=== PATIENT | female | born 1990 | race Caucasian/White ===

== ENCOUNTER 2017-02-28 21:26 | Emergency (ER) | payer BC, OTHER ==
--- OUTSIDE RECORDS SUMMARY | 2017-02-28 22:31 | XMS REPORT | Continuity of Care Document ---
:1990 Author Organization [employer] [place] [address] Care Team Providers Name Role Phone Rigo Esqueda Primary Care Provider [phone] Source Comments This disclosure is being made pursuant to the [employer] program and contain all information available regarding this patient.[employer] Active Allergies and Adverse Reactions Allergen Noted Date Severity Reactions Comments Ketorolac Tromethamine 02/21/2017 High Anaphylaxis Promethazine 02/21/2017 Low Altered Mental Status Current Medications Be aware that medications may not be up to date as of this document. Alwaysverify current medications with the patient. Prescription Sig. Disp. Refills Start Date End Date Status clopidogrel (PLAVIX) 75 MG 12/21/2016 Active tablet aspirin 325 MG tablet Take 325 mg by Active mouth daily. Active Problems Not on file Most Recent Encounters Date Type Specialty Providers Description 02/28/2017 Orders Only Endocrinology María Peter, Subclinical RN hyperthyroidism (Primary Dx) 02/23/2017 Initial consult Endocrinology Haley Mcpherson, Abnormal thyroid MD ultrasound (Primary Dx) 02/23/2017 Orders Only Endocrinology Mony Ray, Collin's disease RADIOLOGICAL TECHNOLOGIST (Primary Dx) 02/22/2017 Abstract Endocrinology Mony Ray, RADIOLOGICAL TECHNOLOGIST 02/21/2017 Initial consult Rheumatology Tylor Llanes, KRISHNA positive ( Primary MD Dx); Collin's disease Social History Tobacco Use Types Packs/Day Years Used Date Current Every Day Smoker Cigarettes 0.5 Smokeless Tobacco: Never Used Tobacco Cessation:Ready to Quit: No; Counseling Given: Yes Comments: Alcohol Use Drinks/Week oz/Week Comments No 0 Standard drinks or equivalent 0.0 Last Filed Vital Signs Vital Sign Reading Time Taken Blood Pressure 114/67 02/23/2017 8:26 AM CDT Pulse 77 02/23/2017 8:26 AM CDT Temperature - - Respiratory Rate - - Height 1.626 m (5' 4") 02/23/2017 8:26 AM CDT Weight 56.926 kg (125 lb 8 oz) 02/23/2017 8:26 AM CDT Body Mass Index 21.53 02/23/2017 8:26 AM CDT Oxygen Saturation - - Plan of Care Date Type Specialty Providers Description 06/01/2017 Appointment Endocrinology Haley Mcpherson MD [facility] [place] [address] [phone] (Fax) Health Maintenance Due Date Last Done Comments HPV Vaccine (9-26YO) (1 of 3 - Female 3 Dose Series) 2002 Pneumococcal Medium Risk 19-64 yo (1 of 1 - PPSV23) 2010 Tetanus/Pertussis (1 - Tdap) 2010 Pap Smear 2012 Influenza Immunization (#1) 2016 Results from Last 3 Months US HEAD AND NECK SOFT TISSUE (02/23/2017 9:06 AM) Narrative US HEAD AND NECK SOFT TISSUE Transverse and longitudinal images of the thyroid gland were obtained. Right lobe 3.7 x 1.1 x 1.5 cm, diffusely heterogeneous with no discrete nodules. Several enlarged lymph nodes are seen in the right neck at level III and level VA The isthmus measures 0.1 cm Left lobe 3.1 x 1 x 1.4 cm, slightly heterogeneous with no discrete nodules Several enlarged lymph nodes are seen in the left neck at level IV and level III Impression: The thyroid gland is not enlarged, it is slightly heterogeneous with no discrete nodules.Bilateral enlarged lymph nodes are seen.Follow-up is recommended. READING PHYSICIAN: Haley Mcpherson Procedure Note Endy, External Ris In - Tamra February 23, 2017 1:19 PM CDT US HEAD AND NECK SOFT TISSUE Transverse and longitudinal images of the thyroid gland were obtained. Right lobe 3.7 x 1.1 x 1.5 cm, diffusely heterogeneous with no discrete nodules. Several enlarged lymph nodes are seen in the right neck at level III and level VA The isthmus measures 0.1 cm Left lobe 3.1 x 1 x 1.4 cm, slightly heterogeneous with no discrete nodules Several enlarged lymph nodes are seen in the left neck at level IV and level III Impression: The thyroid gland is not enlarged, it is slightly heterogeneous with no discrete nodules. Bilateral enlarged lymph nodes are seen. Follow-up is recommended. READING PHYSICIAN: Haley Mcpherson TSH (02/21/2017 3:17 PM) Component Value Range TSH 0.081(L) 0.350-4.940 uIU/mL Narrative Testing performed at [facility], [address] [place] [address].[employer] Feeder Leo Silver MD Homocysteine (cardio), FPIA (02/21/2017 3:17 PM) Component Value Range Homocysteine, Cardiovascular 14.6(H)Comment: <10.4 umol/L Homocysteine is increased by functional deficiency of folate or vitamin B12.Testing for methylmalonic acid differentiates between these deficiencies.Other causes of increased homocysteine include renal failure, folate antagonists such as methotrexate and phenytoin, and exposure to nitrous oxide. Specimen BLOOD Narrative Testing performed at: [facility], [address] [place] [address], [id number], [employer] Feeder: RIGO ULLOA DO,MPH Ribosomal P protein antibody (02/21/2017 3:17 PM) Component Value Range Ribosome P Ab IgG <1.0 NEG <1.0 NEG AI Narrative Testing performed at: [facility], [address] [place] [address], [phone], [employer] Feeder: RIGO ULLOA DO,MPH Thyroid peroxidase antibody (02/21/2017 3:17 PM) Component Value Range Thyroid Peroxidase Ab 176.24(H) 0.00-5.60 IU/ml Narrative Testing performed at [facility], [address] [place] [address].[employer] Feeder Leo Silver MD Thyroglobulin (02/21/2017 3:17 PM) Component Value Range Thyroglobulin Ab 204.36(H) 0.00-4.10 IU/ml Narrative Testing performed at [facility], [address] [place] [address].[employer]aten [employer] Feeder Leo Silver MD Complement, total (02/21/2017 3:17 PM) Component Value Range Total (CH50) Complement 42 31-60 U/mL Narrative Testing performed at: [facility], [address] [place], [phone], [employer] Feeder: RIGO ULLOA DO,MPH C4 complement (02/21/2017 3:17 PM) Component Value Range Complement C4, Body Fluid 23 16-47 mg/dL Narrative Testing performed at: [facility], [address] [place], [id number], [employer] Feeder: RIGO ULLOA DO,MPH C3 complement (02/21/2017 3:17 PM) Component Value Range Complement C3, Body Fluid 93 90-180 mg/dL Narrative Testing performed at: [facility], [address] [place], [phone], [employer] Feeder: RIGO ULLOA DO,MPH ANCA Panel (Vasculitis) (02/21/2017 3:17 PM) Component Value Range Myeloperoxidase Ab <1.0Comment: AI ValueInterpretation <1.0 No Antibody Detected > or=1.0 Antibody Detected Autoantibodies to myeloperoxidase (MPO) are commonly associated with the following small-vessel vasculitides: microscopic polyangitis, polyarteritis nodosa, Churg-Lia syndrome, necrotizing and crescentic glomerulonephritis and occasionally Wegeners granulomatosis. The perinuclear IFA pattern, (p-ANCA) is based largely on autoantibody to myeloperoxidase which serves as the primary antigen. These autoantibodies are present in active disease state. Proteinase 3 Antibody <1.0Comment: AI ValueInterpretation <1.0 No Antibody Detected > or=1.0 Antibody Detected Autoantibodies to proteinase-3 (NY-3) are accepted as characteristic for granulomatosis with polyangiitis (Sara's), and are detectable in 95% of the histologically proven cases. The cytoplasmic IFA pattern,(c-ANCA), is based largely on autoantibody to NY-3 which serves as the primary antigen. These autoantibodies are present in active disease state. Specimen BLOOD Narrative Testing performed at: [facility], [address] [place], [phone], [employer] Feeder: RIGO ULLOA DO,MPH
--- OUTSIDE RECORDS SUMMARY | 2017-02-28 22:32 | XMS REPORT | Continuity of Care Document ---
:1990 Author Organization [facility] ([facility]) Address [address] [place] [address] Phone [phone] Care Team Providers Name Role Phone Riog Esqueda Primary Care Provider [phone] Source Comments This disclosure is being made pursuant to the Care Everywhere program, applicable federal and state laws, and may not contain all informaitonavailable regarding this patient.[facility] ([facility]) Active Allergies and Adverse Reactions Allergen Noted Date Severity Reactions Comments Ketorolac Tromethamine 12/28/2016 High Anaphylactic Shock Promethazine 12/28/2016 Mental status changes Current Medications Prescription Sig. Disp. Refills Start Date End Date Status clopidogrel 75 mg tablet daily. 12/21/2016 Active aspirin 325 mg EC tablet Take 325 mg by Active mouth daily. 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 Most Recent Encounters Date Type Specialty Providers Description 02/28/2017 Telephone Neurology Kyle Perez Chief Comp: MD Jackie Follow-up 02/27/2017 Hospital General Surgery Austen Castañeda, Dx: Preop testing Encounter MD John (Primary Dx) 02/27/2017 Orders/Notes Neurology Ryanne Joseph, BORDEREAU CLERK 02/27/2017 Orders/Notes Neurology Ryanne Joseph, BORDEREAU CLERK 02/27/2017 Orders/Notes Neurology Ryanne Joseph, BORDEREAU CLERK 02/27/2017 Surgery Radiology Austen Castañeda, NEURO RADIOLOGY MD John PROCEDURE 02/22/2017 Office Visit Neurology Austen Castañeda Chief Comp: Patient MD John Reported Reason For Visit 02/22/2017 Hospital Radiology Chief Comp: Patient Encounter Reported Reason For Visit 02/13/2017 Telephone Neurology Ryanne Joseph FNP 02/13/2017 Telephone Neurology Ryanne Joseph Chief Comp: KOFI Saha Follow-up 02/01/2017 Office Visit Neurology Austen Castañeda Dx: Vertebral MD John artery dissection (Primary Dx) 01/13/2017 Office Visit Ophthalmology - Chief Comp: Patient Specialty Reported Reason For Visit 01/13/2017 Office Visit Ophthalmology - Chief Comp: Patient Specialty Reported Reason For Visit 01/13/2017 Office Visit Ophthalmology - Chief Comp: Patient Specialty Reported Reason For Visit 01/13/2017 Office Visit Ophthalmology - Stefano Sharp, Dx: Other visual Specialty MD disturbances (Primary Dx) 01/13/2017 [facility] Radiology Severino Jansen Dx: Vertigo Quirino Agarwal MD 01/09/2017 Telephone Neurology Tesha Fernandez ARNP 12/28/2016 [facility] Radiology Yun Olvera MD Chief Comp: Patient Encounter Reported Reason For Visit 12/28/2016 Office Visit Neurology Austen Castañeda Dx: Jess Lopez MD (Primary Dx) 12/26/2016 [facility] Radiology Yun Olvera MD Chief Comp: Patient Encounter Reported Reason For Visit 12/26/2016 [facility] Radiology Yun Olvera MD Chief Comp: Patient Encounter Reported Reason For Visit 12/26/2016 [facility] Radiology Irineo Nava, Chief Comp: Patient Encounter MD Reported Reason For Visit 12/26/2016 Orders/Notes Neurology Tesha Fernandez, MANAGER SIGN 12/21/2016 Telephone Neurology Kvng Valente, Chief Comp: Jenifer Deal Referral Social History Tobacco Use Types Packs/Day Years Used Date Current Every Day Smoker Cigarettes 0.5 9 Smokeless Tobacco: Never Used Tobacco Cessation:Counseling Given: Yes Comments: Alcohol Use Drinks/Week oz/Week Comments No Last Filed Vital Signs Vital Sign Reading Time Taken Blood Pressure 105/62 02/27/2017 6:00 PM CDT Pulse 74 02/27/2017 11:36 AM CDT Temperature 37 C (98.6 F) 02/27/2017 11:36 AM CDT Respiratory Rate 16 02/27/2017 11:36 AM CDT Height 1.6 m (5' 2.99") 02/27/2017 11:36 AM CDT Weight 56.05 kg (123 lb 9.1 oz) 02/27/2017 11:36 AM CDT Body Mass Index 21.89 02/27/2017 11:36 AM CDT Oxygen Saturation 99% 02/27/2017 6:00 PM CDT Plan of Care Date Type Specialty Providers Description 03/07/2018 Appointment Neurology Austen Castañeda, Chief Comp: Patient MD John Reported Reason For Visit [address] [place] [address] [phone] (Fax) Health Maintenance Due Date Last Done Comments Hepatitis B Vaccine (1 of 3 - Primary Series) 1991 HPV Vaccine (1 of 3 - Female 3 Dose Series) 2002 Tdap Vaccine 2002 Cervical Cancer Screening 2009 Lipid Disorder Screening 2009 MMR Vaccine 2009 Td Vaccine 2009 Varicella Vaccine (1 of 2 - Adult - No Evidence of 2009 Immunity) Pneumococcal Vaccine (1 of 1 - PPSV23) 2010 Influenza Vaccine: Seasonal (Season Ended) 2017 Results from Last 3 Months IR NEURO RADIOLOGY PROCEDURE (02/27/2017 2:40 PM) Narrative NEUROINTERVENTIONAL SURGERY-INR OPERATIVE REPORT PROCEDURE: Diagnostic cerebral angiogram CLINICAL INDICATIONS:Mrs Cintron is a very pleasant 26 year old woman who [facility] with acute-onset vertigo. She was bending over to put her boy in the bed when she suddenly felt spinning of the room, and became diaphoretic and started to vomit. She could not walk due to imbalance. A brain MRI without contrast was normal. A head MRA raised the question for a dissection in the V4 segment of the right vertebral artery. She was sent home on meclizine and Valium. The vertigo lasted 5 days. She denies hearing loss or tinnitus, double vision, slurred speech, weakness, swallowing difficulties. Three days later she presented with an intense pain and burning behind her right eye followed by numbness in the right face that spread to her right upper extremity. A carotid ultrasound indicated anterograde flow in both VAs and repeat brain MRI on 12/04/2016 was normal - no cerebellar stroke seen. She reports two other episodes of vertigo, one when she was 17 years old, and another last year in the context of a viral infection. At that time she was told she had an ear infection but she denies ear pain or discharge. After each episode of acute vertigo she describes motion sickness for months, consisting of brief, seconds duration, spinning sensation with abrupt movements of her head or body. Patient also has a history of blurry vision in the temporal half of her right eye lasting about one hour, not associated with headache, for which she was evaluated in our [facility]mology [facility] in December 2016. Patient reports that she continues to have daily and intermittent dizziness symptoms punctuated by one four-day episode of "vertigo" where she felt as though the room were spinning.She adds that this differs from former episodes of vertigo in that this was intermittent over a four-day attack.Patient continues Plavix. Plan today is for diagnostic cerebral angiogram. Pre-op Diagnosis: Right vertebral artery dissection Post-op Diagnosis: Right V2 segment vertebral dissection with partial reconstitution of the V4 segment from the right occipital artery and with right AICA collaterals ACCESS: Right groin vascular sheath VESSELS INJECTED: Right common femoral artery, right vertebral artery, left vertebral artery, right common carotid artery, left common carotid artery CONTRAST:70 ml [id number] ANESTHESIA:1% Local lidocaine MEDS:1 mg Versed IV, 100 mcg Fentanyl IV PHYSICIANS:STAFF RADIOLOGIST: Dr. Boyce RAILWAY SHUNTER: Dr. Janes Patiño PULSES:Intact bilaterally COMPLICATIONS:None immediate BLOOD LOSS:Minimal FLUORO TIME:8.6 min FLUORO DOSE:963 mGy PROCEDURE:Following explanation of the benefits, risks and alternatives for the procedure, consent was obtained from the patient. The risks including but not limited to stroke, intracranial hemorrhage, vascular injury to the cervical or femoral vessels and groin hematoma were discussed with the patient.The patient was brought to the Angiographic Suite and cardiopulmonary monitoring was placed.A time-out was performed.Both groins were prepped in the usual sterile fashion using Chloroprep, and sterilely draped.After administration of 10cc of 1% lidocaine, the skin over right common femoral artery was sharply incised using a scalpel; and subcutaneous tissues were bluntly dissected using a mosquito clamp.A single wall puncture of right common femoral artery was performed; and a 5 Fr short sheath was inserted into the right common femoral artery and maintained on heparinized flush. A 5 Fr Glidecath catheter was advanced into the descending aorta, back-bled, and flushed in the usual fashion.Using coaxial technique, the catheter was advanced into the aortic arch, and with the aid of the roadmapping, digital fluoroscopy, and careful guidewire manipulation, the right common femoral artery, right vertebral artery, left vertebral artery, right common carotid artery, left common carotid artery were selectively catheterized.Upon each successive selective catheterization, digital subtraction angiography using the appropriate rate and volume of contrast in multiple projections was performed. The catheter was removed.Roadmapping of the right internal iliac and common/superficial femoral arteries was performed.The femoral sheath was removed; and hemostasis achieved with 6 Fr Perclose closure device. The patient tolerated the procedure well and was transported from the angio suite in unchanged neurological status, without groin hematoma, and with good distal lower extremity pulses.The patient was transferred to recovery to be monitored prior to discharge home. FINDINGS: RIGHT COMMON CAROTID ARTERY (DSA, PA, LATERAL CERVICAL) The origins of the right internal and external carotid arteries are widely patent without evidence of ulceration or stenosis. Intracranial angiography was performed from the right common carotid artery.There is a small posterior communicating artery. The right internal carotid artery and in the right middle cerebral artery and right anterior cerebral artery which are of normal caliber and branching.No aneurysm, vascular malformation, mass effect or significant vasospasm is seen.No significant abnormalities are seen in the capillary phase.The venous phase demonstrates patent transverse and sigmoid sinuses.However, left transverse sinus is hypoplastic compared to the right transverse sinus. RIGHT VERTEBRAL ARTERY (DSA, PA, LATERAL HEAD) The extradural segment of the right vertebral artery is hypoplastic.There is evidence of dissection and occlusion at the right vertebral artery V2 segment.There is partial reconstitution of the V4 segment of the right vertebral artery via segmental branches/muscular C1 branches from the right occipital artery.There is decreased flow and filling of the right posterior inferior cerebellar artery.No filling of the proximal basilar artery is seen. No vascular malformations, significant mass effects or significant vasospasm are seen.No significant abnormalities are seen in the capillary phase.The venous phase demonstrates patent transverse and sigmoid sinuses. LEFT COMMON CAROTID ARTERY (DSA, PA, LATERAL CERVICAL) The origins of the left internal and external carotid arteries are widely patent without evidence of ulceration or stenosis. Intracranial angiography was performed followed left common carotid artery.There is a small posterior communicating artery.Branches off the left internal carotid artery are normal.No other aneurysm, vascular malformation, mass effect or significant vasospasm are seen. 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 RIGHT COMMON FEMORAL ARTERY (DSA, PA) Normal caliber and puncture above the bifurcation. SUPERVISION AND INTERPRETATION: 1. The angiographic study demonstrates a right vertebral dissection and occlusion at the V2 segment.There is partial recanalization of the V4 segment of the right vertebral artery due to segmental muscular branches from the right occipital artery.There is diminished and delayed flow in the right posterior inferior cerebral artery territory with attempted collateralization from the right superior cerebellar artery and right anterior inferior cerebellar artery. 2. No immediate complications. VESSELS STUDIED: RIGHT COMMON CAROTID ARTERY (DSA, PA, LATERAL CERVICAL) RIGHT VERTEBRAL ARTERY (DSA, PA, LATERAL HEAD) LEFT COMMON CAROTID ARTERY (DSA, PA, LATERAL CERVICAL) LEFT VERTEBRAL ARTERY (DSA, PA, LATERAL HEAD) RIGHT COMMON FEMORAL ARTERY (DSA, PA) MATERIALS EMPLOYED: 1. 5-Fr short sheath. 2. 5-Fr Glidecath catheter. 3. basico.comson guidewire 4. 0.035 Terumo LT guidewire. I, Dr. Boyce, was present and participated in the entire procedure Procedure Note Endy, Incoming Imaging Results - TuFebruary 28, 2017 8:45 AM CDT NEUROINTERVENTIONAL SURGERY-INR OPERATIVE REPORT PROCEDURE: Diagnostic cerebral angiogram CLINICAL INDICATIONS: Mrs Cintron is a very pleasant 26 year old woman who initially presented [facility] 12[facility] with acute-onset vertigo. She was bending over to put her boy in the bed when she suddenly felt spinning of the room, and became diaphoretic and started to vomit. She could not walk due to imbalance. A brain MRI without contrast was normal. A head MRA raised the question for a dissection in the V4 segment of the right vertebral artery. She was sent home on meclizine and Valium. The vertigo lasted 5 days. She denies hearing loss or tinnitus, double vision, slurred speech, weakness, swallowing difficulties. Three days later she presented with an intense pain and burning behind her right eye followed by numbness in the right face that spread to her right upper extremity. A carotid ultrasound indicated anterograde flow in both VAs and repeat brain MRI on 12/04/2016 was normal - no cerebellar stroke seen. She reports two other episodes of vertigo, one when she was 17 years old, and another last year in the context of a viral infection. At that time she was told she had an ear infection but she denies ear pain or discharge. After each episode of acute vertigo she describes motion sickness for months, consisting of brief, seconds duration, spinning sensation with abrupt movements of her head or body. Patient also has a history of blurry vision in the temporal half of her right eye lasting about one hour, not associated with headache, for which she was evaluated in our [facility] Clinic in December 2016. Patient reports that she continues to have daily and intermittent dizziness symptoms punctuated by one four-day episode of "vertigo" where she felt as though the room were spinning. She adds that this differs from former episodes of vertigo in that this was intermittent over a four-day attack. Patient continues Plavix. Plan today is for diagnostic cerebral angiogram. Pre-op Diagnosis: Right vertebral artery dissection Post-op Diagnosis: Right V2 segment vertebral dissection with partial reconstitution of the V4 segment from the right occipital artery and with right AICA collaterals ACCESS: Right groin vascular sheath VESSELS INJECTED: Right common femoral artery, right vertebral artery, left vertebral artery, right common carotid artery, left common carotid artery CONTRAST: 70 ml Isovue 300 ANESTHESIA: 1% Local lidocaine MEDS: 1 mg Versed IV, 100 mcg Fentanyl IV PHYSICIANS: STAFF RADIOLOGIST: Dr. Boyce RAILWAY SHUNTER: Dr. Janes Patiño PULSES: Intact bilaterally COMPLICATIONS: None immediate BLOOD LOSS: Minimal FLUORO TIME: 8.6 min FLUORO DOSE: 963 mGy PROCEDURE: Following explanation of the benefits, risks and alternatives for the procedure, consent was obtained from the patient. The risks including but not limited to stroke, intracranial hemorrhage, vascular injury to the cervical or femoral vessels and groin hematoma were discussed with the patient. The patient was brought to the Angiographic Suite and cardiopulmonary monitoring was placed. A time-out was performed. Both groins were prepped in the usual sterile fashion using Chloroprep, and sterilely draped. After administration of 10cc of 1% lidocaine, the skin over right common femoral artery was sharply incised using a scalpel; and subcutaneous tissues were bluntly dissected using a mosquito clamp. A single wall puncture of right common femoral artery was performed; and a 5 Fr short sheath was inserted into the right common femoral artery and maintained on heparinized flush. A 5 Fr Glidecath catheter was advanced into the descending aorta, back-bled, and flushed in the usual fashion. Using coaxial technique, the catheter was advanced into the aortic arch, and with the aid of the roadmapping, digital fluoroscopy, and careful guidewire manipulation, the right common femoral artery, right vertebral artery, left vertebral artery, right common carotid artery, left common carotid artery were selectively catheterized. Upon each successive selective catheterization, digital subtraction angiography using the appropriate rate and volume of contrast in multiple projections was performed. The catheter was removed. Roadmapping of the right internal iliac and common/superficial femoral arteries was performed. The femoral sheath was removed; and hemostasis achieved with 6 Fr Perclose closure device. The patient tolerated the procedure well and was transported from the angio suite in unchanged neurological status, without groin hematoma, and with good distal lower extremity pulses. The patient was transferred to recovery to be monitored prior to discharge home. FINDINGS: RIGHT COMMON CAROTID ARTERY (DSA, PA, LATERAL CERVICAL) The origins of the right internal and external carotid arteries are widely patent without evidence of ulceration or stenosis. Intracranial angiography was performed from the right common carotid artery. There is a small posterior communicating artery. The right internal carotid artery and in the right middle cerebral artery and right anterior cerebral artery which are of normal caliber and branching. No aneurysm, vascular malformation, mass effect or significant vasospasm is seen. No significant abnormalities are seen in the capillary phase. The venous phase demonstrates patent transverse and sigmoid sinuses. However, left transverse sinus is hypoplastic compared to the right transverse sinus. RIGHT VERTEBRAL ARTERY (DSA, PA, LATERAL HEAD) The extradural segment of the right vertebral artery is hypoplastic. There is evidence of dissection and occlusion at the right vertebral artery V2 segment. There is partial reconstitution of the V4 segment of the right vertebral artery via segmental branches/muscular C1 branches from the right occipital artery. There is decreased flow and filling of the right posterior inferior cerebellar artery. No filling of the proximal basilar artery is seen. No vascular malformations, significant mass effects or significant vasospasm are seen. No significant abnormalities are seen in the capillary phase. The venous phase demonstrates patent transverse and sigmoid sinuses. LEFT COMMON CAROTID ARTERY (DSA, PA, LATERAL CERVICAL) The origins of the left internal and external carotid arteries are widely patent without evidence of ulceration or stenosis. Intracranial angiography was performed followed left common carotid artery. There is a small posterior communicating artery. Branches off the left internal carotid artery are normal. No other aneurysm, vascular malformation, mass effect or significant vasospasm are seen. LEFT VERTEBRAL ARTERY (DSA, PA, LATERAL HEAD) The left vertebral artery is dominant. The intradural and extradural segments of the left vertebral artery are of normal caliber. There is filling of bilateral posterior cerebral artery and superior cerebellar arteries. 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 Bilateral anterior inferior cerebral arteries are of normal caliber and branching. The left posterior inferior cerebellar artery is well visualized and normal in appearance. There is decreased and delay in flow to the right posterior inferior cerebral artery territory. There is attempted collateralization to the right posterior inferior cerebellar artery territory via the right superior cerebellar artery and right anterior inferior cerebellar artery. No vascular malformations, significant mass effects or significant vasospasm are seen. RIGHT COMMON FEMORAL ARTERY (DSA, PA) Normal caliber and puncture above the bifurcation. SUPERVISION AND INTERPRETATION: 1. The angiographic study demonstrates a right vertebral dissection and occlusion at the V2 segment. There is partial recanalization of the V4 segment of the right vertebral artery due to segmental muscular branches from the right occipital artery. There is diminished and delayed flow in the right posterior inferior cerebral artery territory with attempted collateralization from the right superior cerebellar artery and right anterior inferior cerebellar artery. 2. No immediate complications. VESSELS STUDIED: RIGHT COMMON CAROTID ARTERY (DSA, PA, LATERAL CERVICAL) RIGHT VERTEBRAL ARTERY (DSA, PA, LATERAL HEAD) LEFT COMMON CAROTID ARTERY (DSA, PA, LATERAL CERVICAL) LEFT VERTEBRAL ARTERY (DSA, PA, LATERAL HEAD) RIGHT COMMON FEMORAL ARTERY (DSA, PA) MATERIALS EMPLOYED: 1. 5-Fr short sheath. 2. 5-Fr Glidecath catheter. 3. basico.comrona guidewire 4. 0.035 TerumShopzilla LT guidewire. I, Dr. Boyce, was present and participated in the entire procedure CREATININE (02/27/2017 12:19 PM) Component Value Range Creatinine 0.7Comment: 0.5-1.0 mg/dL Creatinine switched to enzymatic method on 03/01/2011.GFR equation switched to IDMS-traceable MDRD equation on 03/01/2011. Calculated GFR values are not valid in clinical settings where serum creatinine is changing. Calculated GFR >90 >60 mL/min/1.73 m2 Specimen Blood BLOOD UREA NITROGEN (02/27/2017 12:19 PM) Component Value Range BUN 11 10-20 mg/dL Specimen Blood PLATELET REACTIVITY UNITS(P2Y12) (02/27/2017 12:19 PM) Component Value Range Platelet Reactivity Units 65(L)Comment: 194-418 RU Values less than the lower limit (194) are highly specific for a P2Y12 inhibitor effect Specimen Blood ASPIRIN REACTIVITY UNITS (02/27/2017 12:19 PM) Component Value Range Aspirin Reactivity Units 477(L)Comment: 620-672 RU Values less than 550 ARU detects platelet dysfunction consistent with aspirin therapy Specimen Blood URINE , POINT OF CARE (02/27/2017) Component Value Range POC URINE Negative POC MARKETING GRAPHICS SPECIALIST SatisfactoryComment:[id number] MRA NECK W/WO CONTRAST (62517) (01/13/2017 8:25 AM) Impressions Impression: 1. 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 2. 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 3. Diffusely enlarged thyroid gland which can be seen in Collin's thyroiditis among other conditions. Narrative Procedure: MRA NECK W/WO CONTRAST (90311) Indication: Vertigo. Evaluation for right vertebral artery dissection. Technique: Multisequence, multiplanar MRA of the neck before and after the uneventful administration of 10 mL GadavistIV contrast. Source and MIP images were obtained and reviewed. 3D images were processed on a separate workstation. Comparison: External MRI brain and MRA head dated 12/01/2016 and external carotid Doppler dated 12/22/2016. Angiogram Findings: There is classic aortic branching without significant ostial stenosis. There is normal course and caliber of the common carotid arteries. Internal and external carotid arteries are within normal limits. The vertebral arteries originate from the subclavian arteries without significant ostial stenosis. There is long segment hypoplasia without caliber transition of the right vertebral artery from V1 to V3 segment. There is a rim of high signal on T2-weighted images around the right vertebral artery. There is caliber transition at the right V4 segment which is then completely attenuated.This does not appear to terminate into the posterior inferior cerebellar artery. A beak of distal vertebral artery at the confluence to the basilar artery is present. The caliber of the left vertebral artery throughout its course appears similar to that of the basilar artery. Extravascular Findings: Diffuse enlargement of the thyroid gland, right greater than left.. Procedure Note Endy, Incoming Imaging Results - MonJan 13, 2017 4:37 PM CDT Procedure: MRA NECK W/WO CONTRAST ([id number]) Indication: Vertigo. Evaluation for right vertebral artery dissection. Technique: Multisequence, multiplanar MRA of the neck before and after the uneventful administration of 10 mL Gadavist IV contrast. Source and MIP images were obtained and reviewed. 3D images were processed on a separate workstation. Comparison: External MRI brain and MRA head dated 12/01/2016 and external carotid Doppler dated 12/22/2016. Angiogram Findings: There is classic aortic branching without significant ostial stenosis. There is normal course and caliber of the common carotid arteries. Internal and external carotid arteries are within normal limits. The vertebral arteries originate from the subclavian arteries without significant ostial stenosis. There is long segment hypoplasia without caliber transition of the right vertebral artery from V1 to V3 segment. There is a rim of high signal on T2-weighted images around the right vertebral artery. There is caliber transition at the right V4 segment which is then completely attenuated. This does not appear to terminate into the posterior inferior cerebellar artery. A beak of distal vertebral artery at the confluence to the basilar artery is present. The caliber of the left vertebral artery throughout its course appears similar to that of the basilar artery. Extravascular Findings: Diffuse enlargement of the thyroid gland, right greater than left.. IMPRESSION Impression: 1. 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 2. 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 3. Diffusely enlarged thyroid gland which can be seen in Collin's thyroiditis among other conditions. EXTERNAL MRI - STORE ONLY (12/28/2016 2:18 PM)Only the most recent of3 resultswithin the time period is included.EXTERNAL US - STORE ONLY (12/26/2016 11:52 AM)
--- NOTE | 2017-02-28 22:41 | ERNOTE ---
Medical Problem HPI - General Chief Complaint: General Assessment Time Seen by Provider: 02/28/17 22:24 Source: patient Exam Limitations: no limitations - Immun/Allergies/Home Medications Immunizations: IMMUNIZATION HX Immunizations Up to Date Yes History of Influenza Vaccine Yes Hx Pneumococcal Vaccination No Allergies/Adverse Reactions: Allergies ketorolac tromethamine [From Toradol] Allergy (Severe, Verified 08/25/16 02:03) Anaphylaxis promethazine HCl [From Phenergan] Adverse Reaction (Severe, Verified 08/25/16 02 :03) Other Home Medications: HOME MEDICATIONS Ibuprofen [Motrin] 800 mg PO Q6H PRN #0 tablet 08/26/16 [Last Taken Unknown] Aspirin/Calcium Carbonate/Mag [Aspirin Buffered 325 mg Tab] 325 mg PO DAILY 07/09 [Last Taken Unknown] Clopidogrel Bisulfate [Plavix] 75 mg PO DAILY 02/28/17 [Last Taken Unknown] - History of Present History Narrative: Pt had 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 Groin was sore but not significantly. This afternoon she had sudden increase in pain in the right groin over the insertion site exacerbated by any movement of her leg. Timing: getting worse Severity: moderate, severe Modifying Factors - (Improves): Present: immobilization Modifying Factors - (Worsens): Present: movement - Patient's Past Medical History Patient History - Medical: No pertinent hx Patient History - Cardiac/Respiratory: Other Patient History - Cancer: No Hx of Cancer Patient History - Surgical Procedures: No surgical history Patient History - Other: None LMP (females 10-50): last week - Social History Living Situations: home Psych History: No pertinent hx Smoking Status: Current every day smoker Patient requests Smoking Cessation Consult: No Initiate information on Smoking Cessation: No Alcohol Use: none Drug Use: none - Immunizations Immunizations Up to Date: Yes Hx Pneumococcal Vaccination: No History of Influenza Vaccine: Yes Physical Exam - Physical Exam General Appearance: Present: wd/wn, alert, mild distress Extremity Exam: Present: decreased range of motion - due to pain with all directions of movement Skin Exam: Present: normal color, warm/dry, other - insertion site is in perfect condition, minimal ecchymoses at sight no erythema, no swelling ED Progress - Vital Signs Patient's Vital Signs:: I have reviewed the patient's vital signs. Vital Signs: Vital Signs 02/28/17 21:30 Temperature 37.0 C Pulse Rate 110 H Respiratory 18 Rate Blood Pressure 103/63 O2 Sat by Pulse 98 Oximetry - CT/Ultrasound CT/Ultrasound Narrative: U/S right groin. blood flow right common femoral A and V. no pseudoaneurism or mass/ hematoma. fatty replaced lymph node right groin - Progress/Reassessment Chief Complaint: General Assessment Progress Note-Subjective: 03/01/17 00:46 Discussed U/S results. Pt feeling better Departure - Departure Clinical Impression: Inguinal muscle strain Qualifiers: Encounter type: initial encounter Qualified Code(s): S39.013A - Strain of muscle, fascia and tendon of pelvis, initial encounter Disposition: Home self-care Condition: Good Instructions: Cryotherapy Referrals: Rigo Esqueda MD [Primary Care Provider] -
[2017-03-01 00:51] VITALS: BP 120/66
== END 2017-03-01 00:54 | disposition home or self-care (01) ==
LOC: ER 21:26
DX: S39.013A Strain of muscle, fascia and tendon of pelvis, initial encounter (principal); F17.210 Nicotine dependence, cigarettes, uncomplicated; Y84.8 Other medical procedures as the cause of abnormal reaction of the patient, or of later complication, without mention of misadventure at the time of the procedure